=== PATIENT | male | born 1960 | race Caucasian/White ===

== ENCOUNTER 2022-05-22 08:19 | Outpatient (CLI) | payer BC | END 2022-05-22 23:59 | disposition home or self-care (01) | LOC: LAB 08:19 | PROVIDERS: ATTEND Internal Medicine Gastroenterology | DX: Z01.812 Encounter for preprocedural laboratory examination (principal); Z20.822 Contact with and (suspected) exposure to COVID-19 | CPT/HCPCS: A4663 ==

== ENCOUNTER 2022-05-25 06:56 | Day surgery (SDC) | payer BC ==
[2022-05-25 07:31] LABS: HEMATOCRIT 44.4 % (36.7-47.1); MEAN CORPUSCULAR HEMOGLOBIN 31.5 uug (23.8-33.4); MEAN CORPUSCULAR VOLUME 94.6 fL (73.0-96.2); PLATELET COUNT (AUTO) 142 K/uL (152-348)
[2022-05-25 07:33] LABS: *BILIRUBIN,URIN 1+ (NEGATIVE); *BLOOD, URINE NEGATIVE (NEGATIVE); *CLARITY,URINE CLEAR (CLEAR); *COLOR,URINE YELLOW (YELLOW); *KETONES,URINE TRACE (NEGATIVE); *UROBILINOGEN,URINE 0.2 E.U./dl (NORMAL); LEUKOCYTE ESTERASE ,URINE NEGATIVE (NEGATIVE); NITRITE, URINE NEGATIVE (NEGATIVE); PH,URINE 5.5 (5.0-8.0); UGLUCOSE NEGATIVE (NEGATIVE)
[2022-05-25 07:47] LABS: BILIRUBIN,TOTAL 0.9 mg/dL (0.2-1.0); POTASSIUM 3.5 mmol/L (3.5-5.1); TOTAL PROTEIN, SERUM 7.7 g/dL (6.4-8.2)
[2022-05-25] MEDS ORDERED: LIDOCAINE-MPF 2% 5 ML VIAL ONE (08:40)
[2022-05-25] MEDS ORDERED: PROPOFOL 200 MG/20 ML BOTTLE ONE ×3 (08:40)
== END 2022-05-25 10:15 | disposition home or self-care (01) ==
LOC: DS 06:56
PROVIDERS: ATTEND Internal Medicine Gastroenterology
DX: Z12.11 Encounter for screening for malignant neoplasm of colon (principal); K64.8 Other hemorrhoids; K63.5 Polyp of colon; K63.89 Other specified diseases of intestine; Z79.899 Other long term (current) drug therapy; Z98.890 Other specified postprocedural states; Z80.0 Family history of malignant neoplasm of digestive organs; Z72.89 Other problems related to lifestyle
CPT/HCPCS: 45380; 71045; 80053; 81003; 85025; 85730; 36415; 93005; J3490; J7120; A4663